=== PATIENT | male | born 1955 | race Caucasian/White ===

== ENCOUNTER 2018-02-14 22:23 | Observation (INO) | payer BC, SELFPAY ==
[~2018-02-14 22:23] MED LIST: ISOVUE-370 76%-LOCM 1 ML ONE
[2018-02-14 22:53] LABS: #Basophils 0.1 thou/uL (0.0-0.2); #Eosinphils 0.1 thou/uL (0.0-0.7); #Lymphocytes 2.9 thou/uL (1.20-3.40); #Monocytes 0.7 thou/uL (0.11-0.59); #Neutrophils 3.4 thou/uL (1.40-6.50); %Basophils 0.7 % (0.0-1.0); %Eosinophils 1.8 % (0.0-10.0); %Lymphocytes 40.2 % (21.0-51.0); %Monocytes 9.5 % (0.0-10.0); %Neutrophils 47.8 % (42.0-75.0); Hemoglobin 15.6 g/dL (14.0-18.0); Mean Corpuscular HGB CONC 35.6 g/dL (32.0-36.0); Mean Corpuscular Hemoglobin 33.1 pg (27.0-31.0); Mean Corpuscular Volume 93.1 fL (78.0-98.0); Mean Platelet Volume 6.8 fL (7.4-10.4); Platelet Count 272 thou/uL (130-400); RBC Distribution Width 11.2 % (11.5-14.5); Red Blood Cell (RBC) Count 4.71 mill/uL (4.70-6.10); White Blood Cell (WBC) Count 7.2 thou/uL (4.8-10.8)
[2018-02-14 22:58] LABS: INR-International Normal Ratio 0.8; Prothrombin Time 10.9 SEC (12.0-14.7)
[2018-02-14 23:03] LABS: PTT 23.6 SEC (22.9-36.1)
[2018-02-14 23:06] LABS: ALT (SGPT) 20 U/L (8-55); AST (SGOT) 17 U/L (5-34); Albumin 4.4 g/dL (3.4-4.8); Alkaline Phosphatase 115 U/L (40-150); Anion Gap 20 mmol/L (10-20); BUN (Urea Nitrogen) 23 mg/dL (8.4-25.7); Bilirubin, Total 0.4 mg/dL (0.2-1.2); Calc. Creatinine Clearance 0 mL/min (70-130); Calcium 10.1 mg/dL (7.8-10.44); Carbon Dioxide 19 mmol/L (23-31); Chloride 97 mmol/L (98-107); Estimated GFR-MDRD 63; Globulin 3.3 g/dL (2.4-3.5); Glucose 450 mg/dL (80-115); Potassium 4.2 mmol/L (3.5-5.1); Protein, Total 7.7 g/dL (5.8-8.1); Sodium 132 mmol/L (136-145)
[2018-02-14 23:10] LABS: CKMB 1.9 ng/mL (0-6.6); Troponin I Less than 0.010 ng/mL (< 0.028)
--- NOTE | 2018-02-15 00:57 | CT ---
HEAD CT WITHOUT CONTRAST: HISTORY: Right-sided facial and arm numbness x1 hour. COMPARISON: None. TECHNIQUE: A noncontrast head CT is performed in the axial plane. FINDINGS: No parenchymal hemorrhage. No extraaxial hematoma. No midline shift. The basilar cisterns are bowser nt. Brain volume is age appropriate. Cortical peterson white matter differentiation is preserved. The ventricles and sulci are patent and symmetric. Adequate aeration of the sinuses and mastoid air cells. Osteoma in the anterior right ethmoid air ce lls is noted. Intact calvarium. IMPRESSION: No acute intracranial process. The results of the study were discussed with Dr. Jaimes on 02/14/2018 at 10:35 p.m. CODE CR POS: KIA
--- NOTE | 2018-02-15 01:27 | CT ---
CT ANGIOGRAM HEAD AND NECK: HISTORY: Right-sided facial and arm numbness x1 hour. COMPARISON: None. TECHNIQUE: CT angiogram of the head and neck are performed in the axial plane, and three-dimensional reformatted images are submitted for interpretation. FINDINGS: Post contrast head CT. Cortical peterson white matter differentiation is preserved. No evidence of hydr ocephalus. No pathologic enhancement of the brain parenchyma. Post contrast soft tissue neck CT. The aerodigestive tract is patent. No mucosal abnormality. No o bvious mass is in the oral cavity. Limited evaluation due to artifact. Midline fatty raphe of the t ongue is preserved. The epiglottis has a normal caliber. Pre-epiglottic fat is preserved. There is no prevertebral soft tissue swelling. Symmetric attenuation of the parotid and submandibular glands . Symmetric attenuation of the sternocleidomastoid muscles. The thyroid gland is unremarkable. No evidence of lymphadenopathy by size criteria. Varying degrees of central canal stenosis and foraminal narrowing on the basis of degenerative change . Cervical spine vertebral body height is maintained. There are no fractures. Chronic changes in the visualized lung parenchyma. The upper mediastinum is unremarkable. CT ANGIOGRAM: The visualized aortic arch has the overall normal caliber. RIGHT CAROTID: The origin of the right carotid artery is somewhat tortuous. The right common caroti d artery, carotid bifurcation, and internal carotid artery have appropriate enhancement and luminal d iameter. No significant stenosis based upon NASCET criteria. A small amount of calcified plaque in the right carotid bifurcation without significant stenosis. LEFT CAROTID ARTERY: The carotid artery origin has appropriate enhancement and luminal diameter. Th e left common carotid artery, carotid bifurcation, and internal carotid artery have appropriate enhan cement and luminal diameter. No significant stenosis, based upon NASCET criteria. Both cervical vertebral arteries are essentially codominant and patent throughout their course in the neck. Both subclavian arteries are unremarkable CT ANIOGRAM HEAD: The distal cervical and intracranial internal carotid arteries have overall approp riate enhancement and luminal diameter. There is calcified plaque and atherosclerosis involving both cavernous and paraclinoid segments without evidence of high grade stenosis or occlusion. ANTERIOR CIRCULATION: The left and right M1 segments have appropriate enhancement and luminal diamet er. 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 The left A2 segment is opacified via the lateral side secondary to patient anterior communicating artery. Both proximal A2 segments and pro ximal MCA branches are unremarkable. POSTERIOR CIRCULATION: Slightly limited evaluation of both posterior inferior cerebral artery origin s. Both vertebral arteries supply a normal caliber basilar artery. Appropriate enhancement in lumin al diameter. The left and right P1 segments has symmetric enhancement and luminal diameter. Minimal irregularity involving the proximal left P1 segment without significant stenosis. IMPRESSION: Unremarkable CT angiogram of the head and neck. Results of study discussed with Dr. Jaimes on 02/14/2018 at 11:12 p.m. CODE CR POS: KIA
[2018-02-15] MEDS ORDERED: Acetaminophen 325 MG TAB PO PRN (02:30)
[2018-02-15] MEDS ORDERED: Sodium Chloride 0.9% 1,000 ML IV SCH (02:30)
[2018-02-15] MEDS ORDERED: Ondansetron ODT 4 MG TAB SL PRN (02:30)
[2018-02-15] MEDS ORDERED: Ondansetron HCl/PF 4 MG/2 ML Vial IVP PRN (02:30)
[2018-02-15 02:45] VITALS: BMI 26.2
[2018-02-15] MEDS ORDERED: Aspirin 325 MG TAB PO SCH (08:00)
[2018-02-15 08:07] VITALS: BP 158/93; TEMP 97.7
--- NOTE | 2018-02-15 09:33 | PDOC.EVN ---
Event Note - Event Note Event Note: Patient refused MRI, Lipid panel, and any further work-up. H says he wants to go home.
--- NOTE | 2018-02-15 13:17 | HP ---
PRIMARY CARE PHYSICIAN: The patient currently does not have a primary care physician. He had seen Betty Arndt, but it has been years ago. CHIEF COMPLAINT: Numbness on the right side of the face. HISTORY OF PRESENT ILLNESS: Mr. Yancey is a pleasant 62-year-old gentleman that has a history of h ypertension and diabetes mellitus. He says that last night around 9:00 p.m., he started having some numbness on the right side of his face and arm and into his chest. He says he was watching TV when i t happened. He says that it lasted for about an hour. He says it scared him because he has not seen his physician in several years and has not been taking any medications for over a year and as a resu lt came to the hospital for evaluation. He says the numbness was bad that he could barely fasten a s eatbelt. However, by the time he got to the emergency room, his symptoms started to improve and now he is completely back to baseline. He denies having any chest pain or shortness of breath, no PND, n o orthopnea, no lightheadedness, no weakness in his extremities. No seizures, etc. REVIEW OF SYSTEMS: All systems were reviewed and negative except for that mentioned in the history o f present illness. PAST MEDICAL HISTORY: Significant for diabetes mellitus and hypertension. He also had a melanoma wh ich was removed about 8-9 years ago. PAST SURGICAL HISTORY: Surgical removal of the melanoma. ALLERGIES: No known drug allergies. SOCIAL HISTORY: He is a nonsmoker. He occasionally drinks. He is currently engaged. He has one da ughter. 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 He seems to b e very resentful of this and says that he has not been working since. FAMILY HISTORY: Significant for hypertension in his father, diabetes in his grandfather and mother. CURRENT MEDICATIONS: None. PHYSICAL EXAMINATION: GENERAL: He is alert and oriented. He appears to be in no acute distress. He is sitting up in the bed eating. He is well-developed and well-nourished. VITAL SIGNS: Blood pressure was 158/93, heart rate 71, respiratory rate is 16, temperature is 97.9, O2 sat was 96% on room air. HEENT: Pupils equal, round, and reactive. Extraocular muscles are intact. Sclerae are anicteric. Throat; no erythema, no exudates. NECK: No adenopathy, no bruits. LUNGS: Clear to auscultation. There is no wheezing, no rales. CARDIOVASCULAR: He has a normal S1, S2. There is no S3 or S4. No murmurs, clicks or rubs. ABDOMEN: Soft, it is obese, it is nontender, nondistended. Positive for bowel sounds. There is no rebound or guarding. EXTREMITIES: No clubbing, cyanosis, no edema. NEUROLOGIC: The exam is grossly nonfocal with cranial nerves II-XII are intact. Muscle strength is 5/5 in both his upper and lower extremities, good scudding inspector strength. SKIN AND INTEGUMENT: No skin changes. No rash on his feet. He has got good dorsalis pedis pulses b ilaterally and no skin lesions. LABORATORY DATA AND IMAGING DATA: Blood glucose was 413 initially, sodium 132, potassium 4.2, chlori de is 97, CO2 is 19, BUN of 23, creatinine 1.17, white blood cell count is 7.2, hemoglobin 15.6, chelo tocrit is 43.9, platelet count is 272. INR 0.08. CT scan of the brain was negative. CT angio of th e [place] and neck was negative for any aneurysms, also negative for any significant flow-li miting disease in the carotid arteries. He had an EKG which was sinus rhythm with no specific ST wav e changes. ASSESSMENT AND PLAN: This is a pleasant 62-year-old gentleman that presents with symptoms suspicious for possible transient ischemic attack. He has been noncompliant with medications for hypertension and diabetes and this likely is the reason for risk factors. This likely the risk factors which led to his transient ischemic attack. The plan was to have the patient undergo an MRI as well as an echo cardiogram; however, when I told him the plan of care, he quickly jumped in and says he does not want any of these tests done. He says that he has been out of work for 3 years and is not interested in getting any further evaluation done. Since the symptoms are back to baseline, we agreed to discharge him over, although this is not an ideal situation. We will, however, need to start him on medicatio ns for diabetes, hypertension, and high cholesterol. Place him on a full dose aspirin daily and ther efore we will place him on metformin 500 mg twice daily, lisinopril 5 mg a day, simvastatin 20 mg darlyn ly, and full dose aspirin 325 mg a day. He is to follow up with Dr. Arndt as soon as possible for further recommendations. He was also counseled briefly on the need for medical compliance and the da ngers of diabetes, need for routine eye exams and foot exams, etc.
--- NOTE | 2018-02-19 11:14 | EKG ---
Test Reason : Blood Pressure : / mmHG Vent. Rate : 083 BPM Atrial Rate : 083 BPM P-R Int : 158 ms QRS Dur : 110 ms QT Int : 400 ms P-R-T Axes : 013 -48 071 degrees QTc Int : 470 ms Sinus rhythm with Premature atrial complexes Left anterior fascicular block Minimal voltage criteria for LVH, may be normal variant Septal infarct , age undetermined Abnormal ECG No ST elevation/CA Confirmed by SAUL MULLER M.D. ([id number]), food editor MCKENNA SALAZAR ([id number]) on 02/19/2018 11:14:24 AM Referred By: Confirmed By:SAUL MULLER M.D.
== END 2018-02-15 10:42 | disposition home or self-care (01) ==
LOC: ERS 22:23 → 2SE 02-15 01:57
PROVIDERS: ADMIT Hospitalist; ATTEND Hospitalist
DX: R20.0 Anesthesia of skin (principal); E11.9 Type 2 diabetes mellitus without complications; I10 Essential (primary) hypertension; Z91.14 Patient's other noncompliance with medication regimen
CPT/HCPCS: 36416; 70450; 70496; 70498; 80053; 82553; 84484; 85025; 85610; 85730; 93005; 96360; 96361; G0378

== ENCOUNTER 2023-06-22 08:00 | Outpatient (CLI) | payer MEDICARE, OTHER | END 2023-06-22 08:01 | disposition home or self-care (01) | LOC: BICULT 08:00 | PROVIDERS: ATTEND Internal Medicine Nephrology | DX: I12.9 Hypertensive chronic kidney disease with stage 1 through stage 4 chronic kidney disease, or unspecified chronic kidney disease (principal); N18.30 Chronic kidney disease, stage 3 unspecified; R93.421 Abnormal radiologic findings on diagnostic imaging of right kidney; R93.422 Abnormal radiologic findings on diagnostic imaging of left kidney; N28.9 Disorder of kidney and ureter, unspecified | CPT/HCPCS: 76770; 93975 ==